=== PATIENT | male | born 1965 | race Two or more races ===

== ENCOUNTER 2022-03-30 13:12 | Emergency (ER) | payer MEDICAID, OTHER ==
[~2022-03-30] VITALS: Ht 172.7 cm; Wt 110.0 kg
[2022-03-30] MEDS ORDERED: ASPirin 325 MG TAB PO ONE (15:00)
[2022-03-30 15:15] VITALS: BP 140/68
== END 2022-03-30 15:15 ==
LOC: ER 13:12
DX: M79.10 Myalgia, unspecified site (principal); F41.9 Anxiety disorder, unspecified; I48.91 Unspecified atrial fibrillation
CPT/HCPCS: 93005

== ENCOUNTER 2022-06-08 17:00 | Emergency (ER) | payer MEDICAID ==
[~2022-06-08] VITALS: Ht 172.7 cm; Wt 113.6 kg
[2022-06-08 18:07] LABS: Hematocrit 29.2 % (41.0-53.0); Hemoglobin 9.5 g/dL (13.5-17.5); Mean Corpuscular Hemoglobin 31.4 pg (28.0-32.0); Mean Corpuscular Hgb Conc. 32.4 g/dL (32.0-36.0); Red Blood Cells 3.02 10^6/uL (4.5-5.90); Red Cell Distribution Width 15.9 % (11.8-14.3); White Blood Cell 13.2 10^3/uL (4.4-10.8)
[2022-06-08 18:23] LABS: INR 0.97 (0.9-1.15); Partial Thromboplastin Time 25.4 sec (24.6-33.4)
[2022-06-08 18:26] LABS: Albumin 2.3 g/dL (3.4-5.0); Anion Gap 12 (5-15); Calcium 7.7 mg/dL (8.5-10.1); Carbon Dioxide 27 mmol/L (21-32); Chloride 96 mmol/L (98-107); Glucose 105 mg/dL (74-106); Magnesium 2.3 mg/dL (1.6-2.6); Potassium 3.9 mmol/L (3.5-5.1); Sodium 135 mmol/L (136-145)
[2022-06-08 18:28] LABS: Alanine Aminotransferase 37 U/L (16-61); Aspartate Aminotransferase 36 U/L (15-37); GFR African American 137 mL/min; GFR Non-African American 114 mL/min
[2022-06-08 18:29] LABS: Basophils % (manual) 0 (0.0-2.0); Blast Cells 0; Eosinophils % (manual) 0 (0-7); Metamyelocytes % 0; Myelocytes % 0; Promyelocytes % 0; Reactive Lymphocytes 0
[2022-06-08 18:30] LABS: Alkaline Phosphatase 99 U/L (45-117); Bilirubin, Total 0.4 mg/dL (0.2-1.0); Total Protein 5.5 g/dL (6.4-8.2)
[2022-06-08 18:33] LABS: Lactic Acid w/Reflex 2.1 mmol/L (0.4-2.0)
[2022-06-08 18:46] LABS: Blood Alcohol 341.3 mg/dL (0-5)
[2022-06-08 18:55] LABS: Band Neutrophils % (manual) 3; Lymphocytes % (manual) 13 (10.0-50.0); Monocytes % (manual) 8 (0-12)
[2022-06-08 20:04] LABS: BUN/Creatinine Ratio 11.8; Blood Urea Nitrogen 9 mg/dL (7-18)
[2022-06-09] VITALS: BP 105/44
== END 2022-06-09 00:50 | disposition left against medical advice (07) ==
LOC: EDUNIT# 17:00 → EDBD 17:00 → ER 17:00
DX: F10.129 Alcohol abuse with intoxication, unspecified (principal); D72.829 Elevated white blood cell count, unspecified; R07.89 Other chest pain; I10 Essential (primary) hypertension; Z20.822 Contact with and (suspected) exposure to COVID-19; Y90.8 Blood alcohol level of 240 mg/100 ml or more
CPT/HCPCS: 36415; 70450; 71045; 71250; 74176; 80053; 80320; 83605; 83735; 84484; 85007; 85027; 85610; 85730; 87040; 87426; 93005

== ENCOUNTER 2022-06-21 19:04 | Emergency (ER) | payer MEDICAID ==
[~2022-06-21] VITALS: Ht 172.7 cm; Wt 113.0 kg
[2022-06-21 19:13] VITALS: BP 0/0
== END 2022-06-21 20:20 ==
LOC: ER 19:05
DX: I46.9 Cardiac arrest, cause unspecified (principal); I10 Essential (primary) hypertension; R41.82 Altered mental status, unspecified; R06.89 Other abnormalities of breathing
CPT/HCPCS: 31500; 92950